=== PATIENT | male | born 1985 ===

== ENCOUNTER 2022-12-31 15:24 | Emergency (ER) | payer BC ==
[2022-12-31] MEDS ORDERED: Diphtheria,Pertussis(Acell),Tetanus Vaccine 0.5 ML Syringe IM ONE (16:09)
== END 2022-12-31 16:30 | disposition home or self-care (01) ==
LOC: FB.ED 15:24
DX: S90.01XA Contusion of right ankle, initial encounter (principal); S50.812A Abrasion of left forearm, initial encounter; W45.8XXA Other foreign body or object entering through skin, initial encounter
CPT/HCPCS: 73610-RT; 90471; 90715; 99282; 99283

== ENCOUNTER 2023-08-29 17:55 | Emergency (ER) | payer BC ==
[2023-08-29] MEDS ORDERED: Lidocaine 1% 5 ML VIAL INFILT ONE (17:56)
[2023-08-29] MEDS ORDERED: Diphtheria,Pertussis(Acell),Tetanus Vaccine 0.5 ML Syringe IM ONE (18:40)
== END 2023-08-29 19:02 | disposition home or self-care (01) ==
LOC: FB.ED 17:55
DX: S61.011A Laceration without foreign body of right thumb without damage to nail, initial encounter (principal); S61.214A Laceration without foreign body of right ring finger without damage to nail, initial encounter; E66.9 Obesity, unspecified; Z68.33 Body mass index [BMI] 33.0-33.9, adult; Z23 Encounter for immunization; W26.8XXA Contact with other sharp object(s), not elsewhere classified, initial encounter
CPT/HCPCS: 12002; 90471; 90715; 99282-25